=== PATIENT | female | born 1960 | race Caucasian/White ===

== ENCOUNTER 2016-09-04 09:12 | Day surgery (SDC) | payer BC ==
--- NOTE | ~2016-09-04 | EGD ---
EGD REPORT [facility] [address] [address] NAME: LAWSON BRADFORD : [birth year] STATUS : REG [facility]#: [id number] AGE: 56 ADM/REG DATE : 09/04/16 MR#: [id number] REPORT SERV DATE: 09/04/16 DICTATED BY: RISHABH TOWNSEND DATE: 09/04/16 REPORT STATUS : Draft TRANSCRIBED BY: [employer] DATE: 09/04/16 [facility] Patient Name: Lawson Bradford Date of : 1960 Attending MD: RISHABH TOWNSEND MD Procedure Date No Time: 09/04/2016 Procedure: Upper GI endoscopy Indications: Iron deficiency anemia, Follow-up of reflux esophagitis, Gastro-esophageal reflux disease Referring MD: REYES BANKS Medicines: See the Anesthesia note for documentation of the administered medications Complications: No immediate complications. Procedure: Pre-Anesthesia Assessment: - ASA Grade Assessment: II - A patient with mild systemic disease. After obtaining informed consent, the endoscope was passed under direct vision. Throughout the procedure, the patient's blood pressure, pulse, and oxygen saturations were monitored continuously. The GIF [id number] was introduced through the mouth, and advanced to the second part of duodenum. The upper GI endoscopy was accomplished without difficulty. The patient tolerated the procedure well. Findings: The 2nd part of the duodenum was normal. Biopsies were taken with a cold forceps for histology. Mild inflammation was found in the gastric antrum. Biopsies were taken with a cold forceps for histology. The cardia and gastric fundus were normal on retroflexion. A few small sessile polyps were found in the gastric fundus. Biopsies were taken with a cold forceps for histology. Gastric sleeve A 5 cm hiatus hernia was present. Impression: - Normal 2nd part of the duodenum. Biopsied. - Gastritis. Biopsied. - A few gastric polyps. Biopsied. - Gastric sleeve - Hiatus hernia. Recommendation: - Patient has a contact number available for emergencies. The signs and symptoms of potential delayed complications were discussed with the patient. Return to EGD REPORT [address] [address] NAME: LAWSON BRADFORD : [birth year] STATUS : [place] [facility] [place]#: [id number] AGE: 56 ADM/REG DATE : 09/04/16 MR#: [id number] REPORT SERV DATE: 09/04/16 DICTATED BY: RISHABH TOWNSEND DATE: 09/04/16 REPORT STATUS : Draft TRANSCRIBED BY: [employer] DATE: 09/04/16 normal activities tomorrow. Written discharge instructions were provided to the patient. - Regular diet. - Continue present medications. - FOR YOUR BIOPSY RESULTS: Please go to [email or web address] and register to receive your results via the portal. Your biopsy results will be posted there in about 7 to 10 days. IF you do not see result in 10 days, call office. - CBC in 2 months Office visit in 3 months Procedure Code(s): --- Professional --- 35980, Esophagogastroduodenoscopy, flexible, transoral; with biopsy, single or multiple Diagnosis Code(s): --- Professional --- K29.70, Gastritis, unspecified, without bleeding K31.7, Polyp of stomach and duodenum K44.9, Diaphragmatic hernia without obstruction or gangrene D50.9, Iron deficiency anemia, unspecified K21.0, Gastro-esophageal reflux disease with esophagitis CPT copyright 2013 [employer]. All rights reserved. The codes documented in this report are preliminary and upon cutter and edge trimmer review may be revised to meet current compliance requirements. Rishabh Townsend MD RISHABH TOWNSEND MD 09/04/2016 11:14 AM This report has been signed electronically. Number of Addenda: 0 Note Initiated On: 09/04/2016 11:01 AM Scope Withdrawal Time 0 hours 0 minutes 0 seconds [address] [place] [address]
[~2016-09-04 09:12] MED LIST: CALCIUM PO; CAT1 PO; ENBREL50 MG/M1 SC; ESTRACE1 MG PO; EXFORGE1 TA1 PO; GLUCPH PO; HYGROTON 25 MG25 MG PO; MAGNESIUM OTC PO; MULTIVIT/MIN PO; NUIRONCAP PO; PAXIL CR25 MG PO; POTASSIUM OTC PO; PROTONIX PO; TOPXL25 PO; VITAMIN B-121000 MC1 SL; XANAX1 MG PO; ZOCOR40 PO
== END 2016-09-04 23:59 | disposition home health service (06) ==
LOC: DMU 09:12
PROVIDERS: Internal Medicine Gastroenterology
PROC: 0DB68ZX Excision of Stomach, Via Natural or Artificial Opening Endoscopic, Diagnostic (ICD-10-PCS; 2016-09-04)
PROC: 0DB98ZX Excision of Duodenum, Via Natural or Artificial Opening Endoscopic, Diagnostic (ICD-10-PCS; principal; 2016-09-04 10:30)
DX: D50.9 Iron deficiency anemia, unspecified (principal); K44.9 Diaphragmatic hernia without obstruction or gangrene; K21.0 Gastro-esophageal reflux disease with esophagitis; I10 Essential (primary) hypertension; G47.33 Obstructive sleep apnea (adult) (pediatric); E78.00 Pure hypercholesterolemia, unspecified; M19.90 Unspecified osteoarthritis, unspecified site; E11.9 Type 2 diabetes mellitus without complications; F41.9 Anxiety disorder, unspecified; L40.9 Psoriasis, unspecified; Z77.22 Contact with and (suspected) exposure to environmental tobacco smoke (acute) (chronic); Z90.710 Acquired absence of both cervix and uterus; Z90.49 Acquired absence of other specified parts of digestive tract; Z98.51 Tubal ligation status; Z98.890 Other specified postprocedural states
CPT/HCPCS: 82962; 88305